=== PATIENT | male | born 1960 | race American Indian/Alaskan Native ===

== ENCOUNTER 2016-06-18 17:46 | Emergency (ER) | payer SELFPAY ==
--- NOTE | 2016-06-18 18:36 | Emergency Department Report ---
Chief Complaint: Abdominal Pain Stated Complaint: PELVIC / BACK PAIN Time Seen by Provider: 06/18/16 18:33 - HPI History of Present Illness: 55 y/o male complain of pelvic and back pain x 3 days .pt state he was moving heavy furniture and notice that when pain start 3 days ago. - ROS Review of Systems: per HPI - Exam Vital Signs: Vital Signs 06/18/16 18:02 Temperature 98.1 F Pulse Rate 105 H Respiratory 18 Rate Blood Pressure 130/89 O2 Sat by Pulse 99 Oximetry Physical Exam: GENERAL: The patient is well-developed and well-nourished. Patient is in NAD. HENT: Normocephalic. Atraumatic. Patient has moist mucous membranes. Throat: No erythema, swelling or exudates. Ears:Tympanic membranes pearly allred ,intact , and free of exudate and erythema . EYES: Extraocular motions are intact, PERRL NECK: Supple. No meningitic signs are noted. There is no adenopathy noted. CHEST/LUNGS: Clear to auscultation bilaterally. No wheezing, rales or rhonchi noted. There is no respiratory distress noted. HEART/CARDIOVASCULAR: Regular rate and rhythm. Normal S1 S2. No murmurs, rubs , clicks, or gallops. ABDOMEN: Abdomen is soft, nontender.. Bowel sounds normoactive. There is no abdominal distention. Negative rebound tenderness. : Deferred. SKIN: There is no rash. There is no edema. There is no diaphoresis.Normal skin turgor NEURO: The patient is A&Ox3. The patient has no focal neurologic deficits. MUSCULOSKELETAL: There is no tenderness or deformity. There is no limitation range of motion. posture erect.Spine aligned,no deformities. PSYCH: Pt has appropriate mood and affect. MSE screening note: Focused history and physical exam performed. Due to findings the following was ordered: ED Disposition for MSE Condition: Stable
[2016-06-18 19:13] LABS: Basophils % (Auto) 0.7 % (0.0-1.8); Eosinophils % (Auto) 0.9 % (0.0-4.3); Hemoglobin 13.9 gm/dl (11.8-15.2); Mean Corpuscular HGB Conc 33 % (32-34); Mean Corpuscular Hemoglobin 30 pg (28-32); Mean Corpuscular Volume 91 fl (84-94); Platelet Count 215 K/mm3 (140-440); Red Blood Count 4.63 M/mm3 (3.65-5.03); Red Cell Distribution Width 13.2 % (13.2-15.2); White Blood Count 6.6 K/mm3 (4.5-11.0)
[2016-06-18 19:23] LABS: INR 0.96 (0.87-1.13)
[2016-06-18 19:32] LABS: Amylase 94 units/L (27-131); Anion Gap 19 mmol/L; BUN/Creatinine Ratio 21.42; Blood Urea Nitrogen 15 mg/dL (9-20); Calcium 9.1 mg/dL (8.4-10.2); Carbon Dioxide 25 mmol/L (22-30); Chloride 91.6 mmol/L (98-107); Lipase 30 units/L (13-60); Potassium 4.3 mmol/L (3.6-5.0); Sodium 131 mmol/L (137-145)
[2016-06-18 19:42] LABS: Glucose 618 mg/dL (75-100)
[2016-06-18 20:46] LABS: Bilirubin,Urine NEG (Negative); Blood,Urine SM (Negative); Ketones,Urine 20 mg/dL (Negative); Leukocyte Esterase,Urine NEG (Negative); Mucus,Urine FEW /HPF; Nitrite,Urine NEG (Negative); Protein,Urine <15 mg/dL mg/dL (Negative); Urobilinogen,Urine < 2.0 mg/dL (<2.0)
[2016-06-18] MEDS ORDERED: NACL 0.9% 1000 ML 2,000 ML ONE (21:14)
[2016-06-18] MEDS ORDERED: NACL 0.9% 1000 ML 2,000 ML IV ONE (21:25)
--- NOTE | 2016-06-18 21:38 | Emergency Department Report ---
HPI - General Chief Complaint: Abdominal Pain Time Seen by Provider: 06/18/16 21:11 - HPI HPI: This is a 55-year-old Afro-[place]ian male presents to the emergency department with a three-day history of lower abdominal and/or pelvic pain, as well as some pain to the low back, that occurred after moving some heavy show cases a few days ago. He reports a history of a hernia in the right inguinal region and says he has pain in the same place. He denies any problems with bowel or bladder, numbness or paresthesias, or any neurological deficits. The patient has a history of non-insulin dependent diabetes and says he has been noncompliant with his medications for the past few months. He denies any illicit drug use or abuse. He has not taken anything for symptoms prior to presentation. No recent travel or sick contacts at home. He does not have a primary care doctor. ED Past Medical Hx - Past Medical History Hx Diabetes: Yes (NIDDM-NON COMPLIANT) - Surgical History Additional Surgical History: KNEE - Social History Smoking Status: Current Every Day Smoker Substance Use Type: None - Medications Home Medications: Home Medications Medication Instructions Recorded Confirmed Last Taken Type Docusate Sodium [Colace] 100 mg PO BID PRN #20 capsule 06/19/16 Unknown Rx Magnesium Citrate [Citrate of 300 ml PO NOW #1 bottle 06/19/16 Unknown Rx Magnesia] metFORMIN [Glucophage] 500 mg PO BID #60 tablet 06/19/16 Unknown Rx ED Review of Systems ROS: Stated complaint: PELVIC / BACK PAIN Other details as noted in HPI Comment: All other systems reviewed and negative Constitutional: denies: chills, fever Eyes: denies: eye pain, eye discharge, vision change ENT: denies: ear pain, throat pain Respiratory: denies: cough, shortness of breath, wheezing Cardiovascular: denies: chest pain, palpitations Gastrointestinal: abdominal pain. denies: nausea, vomiting Genitourinary: denies: dysuria, frequency Musculoskeletal: denies: back pain, joint swelling, arthralgia Skin: denies: rash, lesions Neurological: denies: headache, weakness, paresthesias Physical Exam - Physical Exam Vital Signs: Vital Signs 06/18/16 06/18/16 18:02 21:11 Temperature 98.1 F 98.1 F Pulse Rate 105 H 88 Respiratory 18 18 Rate Blood Pressure 130/89 Blood Pressure 134/89 [Right] O2 Sat by Pulse 99 98 Oximetry Physical Exam: GENERAL: The patient is well-developed well-nourished. HEENT: Normocephalic. Atraumatic. Extraocular motions are intact. Patient has moist mucous membranes. Pupils equal reactive to light bilaterally. NECK: Supple. Trachea is midline. CHEST/LUNGS: Clear to auscultation. There is no respiratory distress noted. HEART/CARDIOVASCULAR: Regular. There is no tachycardia. There is no gallop rub or murmur. ABDOMEN: Abdomen is soft. Mild tenderness to palpation to the lower quadrants of the abdomen. No guarding rebound tenderness. No peritoneal signs. Patient has normal bowel sounds. There is no abdominal distention.. : No rectal or testicular lesions seen. No tenderness to palpation of the scrotum. No inguinal hernia palpable. SKIN: There is no rash. There is no edema. There is no diaphoresis. NEURO: The patient is awake, alert, and oriented. The patient is cooperative. The patient has no focal neurologic deficits. The patient has normal speech. MUSCULOSKELETAL: There is no tenderness or deformity. There is no limitation range of motion. There is no evidence of acute injury. ED Course Vital Signs 06/18/16 06/18/16 18:02 21:11 Temperature 98.1 F 98.1 F Pulse Rate 105 H 88 Respiratory 18 18 Rate Blood Pressure 130/89 Blood Pressure 134/89 [Right] O2 Sat by Pulse 99 98 Oximetry ED Medical Decision Making - Lab Data Result diagrams: 06/18/16 18:55 06/18/16 18:55 - Radiology Data Radiology results: report reviewed, image reviewed interpreted by me: Abdominal x-ray shows a large amount of stool throughout the intestines but otherwise no obvious signs of obstruction. CT of the abdomen and pelvis with IV contrast shows left adrenal nodule that may represent adenomatous change but is indeterminate. Findings suggestive of constipation. Nonspecific prostatomegaly. - Medical Decision Making 55-year-old male presents the emergency department with the complaint of a few days of pain in the lower abdomen and pelvis, low back and concern that he has a hernia. Physical exam there is no visible or palpable hernia in the inguinal region or the abdomen. X-ray of the abdomen shows a large amount of stool but no obvious signs of obstruction. CT of the abdomen and pelvis with IV contrast shows a left adrenal nodule, constipation, and nonspecific prostatomegaly. Patient's labs are abnormal as he was found to have a blood sugar of around 600. A she has a history of ayd-gwuufqt-duzahokto diabetes but is not compliant with his meds past few months. He does not have any acidosis or significant ketosis. He was given 1 L of fluid and 1 dose of IV insulin and his blood sugars come down to about 270. Patient will be restarted on his metformin. He understands that he can purchase the medication for $4 at [facility] pharmacy. We discussed dietary changes and exercise. He has been given multiple referrals for primary care clinics. Patient is been reevaluated multiple times and is feeling much better. Vital signs stable throughout his ED course. He will return to the ER with any worsening of symptoms or any acute distress. - Differential Diagnosis DKA, HHNK, bowel obstruction, hernia Critical Care Time: No Critical care attestation.: If time is entered above; I have spent that time in minutes in the direct care of this critically ill patient, excluding procedure time. ED Disposition Clinical Impression: Noncompliance with medication regimen, Increased stool volume Uncontrolled diabetes mellitus Qualifiers: Diabetes mellitus type: type 2 Diabetes mellitus complication status: with hyperglycemia Diabetes mellitus jail insulin use: without jail use Qualified Code(s): E11.65 - Type 2 diabetes mellitus with hyperglycemia Abdominal pain Qualifiers: Abdominal location: lower abdomen, unspecified Qualified Code(s): R10.30 - Lower abdominal pain, unspecified Disposition: DISCHARGED TO HOME OR SELFCARE Is pt being admited?: No Does the pt Need Aspirin: No Condition: Stable Instructions: Diabetic Hyperglycemia (ED), Abdominal Pain (ED), Constipation ( ED) Additional Instructions: I've given you multiple referrals for local primary care clinics. These have established physicians at [facility] who can act as your primary care doctor. I have also prescribed you your metformin to restart to treat your diabetes. He metformin can be purchased for $4 for a one-month supply at any [email or web address]. Please also try and stay away from foods and drinks that are high in sugar, carbohydrates and starches. Return to the emergency department with any worsening of your symptoms or any acute distress. Prescriptions: Magnesium Citrate [Citrate of Magnesia] 300 ml PO NOW #1 bottle Docusate Sodium [Colace] 100 mg PO BID PRN #20 capsule PRN Reason: Constipation metFORMIN [Glucophage] 500 mg PO BID #60 tablet Referrals: PRIMARY CARE, [Primary Care Provider] - 3-5 Days [facility] [Outside] - 3-5 Days [facility] [Outside] - 3-5 Days [facility] [Outside] - 3-5 Days [facility] [Outside] - 3-5 Days [facility] [Outside] - 3-5 Days Time of Disposition: 01:06
[2016-06-18] MEDS ORDERED: NACL 0.9% 1000 ML 1,000 ML IV ONE (22:41)
--- NOTE | 2016-06-18 22:58 | XRay Report ---
FINAL REPORT EXAM: XR ABDOMEN 2V HISTORY: abd pain TECHNIQUE: Supine and upright views of abdomen. PRIORS: None. FINDINGS: Moderate-large amount of retained stool. Nonspecific bowel gas pattern without features suggestive of mechanical obstruction. No apparent pneumoperitoneum. No abnormal calcifications. Osseous structures grossly unremarkable. IMPRESSION: 1. Nonspecific bowel gas pattern, which may be secondary to constipation or represent adynamic ileus. Followup may be warranted.
[2016-06-18] MEDS ORDERED: MORPHINE IV ONE (23:11)
[2016-06-18] MEDS ORDERED: NACL ONE (23:46)
--- NOTE | 2016-06-19 00:06 | Admit Criteria Form ---
[id number] ABDOMINAL PAIN Clinical Indications for Admission to Inpatient Care (Place 'X' for any and all applicable criteria): Admission is indicated for ANY ONE of the following(1)(2)(3)(4)(5): [ X]I. Inpatient admission required rather than observation care (Also use Abdominal Pain: Observation Care, as appropriate) because of ANY ONE of the following: [ ]a) Severe pain requiring acute inpatient management [ ]b) Identification of etiology/finding that requires inpatient care (eg, aortic dissection, free air) [ ]c) Absent bowel sounds with complete ileus(6) [ ]d) Suspected toxic megacolon [ ]e) Severe electrolyte abnormalities requiring inpatient care [ ]f) High fever or infection requiring inpatient admission as indicated by ANY ONE of following(7)(8): [ ] i) Appropriate outpatient or observational care antimicrobial treatment unavailable, not effective, or not feasible [ ] ii) Documented bacteremia [ ] iii) Temperature > 104.9 degrees F (oral) [ ] iv) T >103.1 F (oral) or < 96.8 F(rectal) that does not respond to all emergency treatment measures [ ]g) Signs of intestinal obstruction [B] [ ]h) Hemodynamic instability [ ]i) IV fluid to replace significant ongoing losses (greater than 3 L/m2 per day) (12)(13) [ ]j) Percutaneous or open drainage (eg, abscess, biliary tract ) procedures [ ]k) Parenteral nutrition regimen that must be implemented on inpatient basis [ X]l) Other condition,treatment or monitoring requiring inpatient admission. [ ]II. Peritoneal signs present [ ]III. Surgery needed that cannot be performed on an ambulatory basis. [ ]IV. Evaluation requires patient to not eat or drink for extended period ( eg, more than 24 hours). [ ]V. Contraindications and/or Inappropriate clinical situations for Observational Care in patients with abdominal pain, when ANY ONE of the following is required: [ ]a) Thorough evaluation is required to prevent catastrophic events due to delays in diagnosing (e.g.Mesenteric ischemia) 1,3 [ ]b) Patient with severe pathology or with chronic symptoms unlikely to improve in the ED stay (3) [ ]. General contraindications and/or Inappropriate clinical situations for Observational Care in patients with abdominal pain, when ANY ONE of the following is required: [ ]a) Prediction of prolongation of LOS based on ANY ONE of the following may be considered as a contraindication for observational care 2, 3, 4, 5, 6, 7, 8, 9, 10, 11 [ ]i) Age > 65 yrs. [ ]ii) Patient arriving by ambulance [ ]iii) Patient with high acuity [ ]iv) Patient requiring vital sign monitoring [ ]v) Patient on IV medication [ ]b) Systolic blood pressures 180mmHg 3,12 [ ]c) Patient with altered mental status including delirium and other alteration of consciousness, (3) [ ]d) Patient whose discharge disposition will be to a long term home or rehabilitation home should not be managed in Emergency Department Observation Unit. CMS rule requires 3 days hospital stay before such placement.3,13 [ ]e) Patient with failure to thrive due to broad array of etiologies 3,16,17 [ ]f) Inability to ambulate 3,14 Extended stay beyond goal length of stay may be needed for(2)(3): [ ]a) Persistent abdominal pain with suspected intra-abdominal process [ ]b) Diagnosed condition requiring continued stay (e.g., pancreatitis, complicated diverticulitis) [ ]c) Surgery (e.g., colectomy) The original [employer] content created by [employer] has been revised. The portions of the content which have been revised are identified through the use of italic text or in bold, and [facility] has neither reviewed nor approved the modified material.All other unmodified content is copyright [employer]. Please see references footnoted in the original [facility] edition 2016 Admission Criteria Met: Yes <BRI ANDRE - Last Filed: 06/19/16 20:06> Admission Criteria Met: No (Patient improved and discharged)
--- NOTE | 2016-06-19 00:42 | Cat Scan Report ---
FINAL REPORT EXAM: CT ABDOMEN PELVIS W CON HISTORY: Abd pain TECHNIQUE: Spiral CT scanning of the abdomen and pelvis after the uneventful administration of IV contrast. Multiplanar reformations. 100 mL Omnipaque IV. PRIORS: None. FINDINGS: Abdomen: Visualized lung bases grossly unremarkable. No radiopaque gallstones. Liver without significant abnormality. Spleen without significant abnormality. Pancreas without significant abnormality. Kidneys without significant abnormality. Nodular density in the left adrenal gland measures approximately 1.5 cm. Right adrenal gland grossly unremarkable. Pelvis: Bowel grossly unremarkable, with moderate-large amount of retained stool. Probable appendix partially visualized and grossly unremarkable. No significant free peritoneal fluid or apparent adenopathy. Abdominal aorta non-aneurysmal. Urinary bladder distended, nonspecific. Nonspecific prostatic enlargement. IMPRESSION: 1. Left adrenal nodule may represent adenomatous change, but is indeterminate. Followup suggested. 2. Findings suggestive of constipation. 3. Nonspecific prostatomegaly.
[2016-06-19 01:29] VITALS: BP 125/78
== END 2016-06-19 01:00 | disposition home or self-care (01) ==
LOC: ED 17:46
DX: E11.65 Type 2 diabetes mellitus with hyperglycemia (principal); R10.30 Lower abdominal pain, unspecified; R19.5 Other fecal abnormalities; Z91.14 Patient's other noncompliance with medication regimen; F17.200 Nicotine dependence, unspecified, uncomplicated
CPT/HCPCS: 36415; 74020; 74177; 80048; 81001; 82010; 82150; 82805; 82962; 83690; 83930; 85025; 85610; 96361; 96374; 96375; 99284; J2270; Q9967; J1815; J7030

== ENCOUNTER 2016-07-18 20:07 | Emergency (ER) | payer SELFPAY ==
--- NOTE | 2016-07-18 22:00 | Emergency Department Report ---
Chief Complaint: Abdominal Pain Stated Complaint: PELVIC PAIN Time Seen by Provider: 07/18/16 21:53 - HPI History of Present Illness: Patient admits to right groin pain that radiates down right leg. He has been dx with hernia years ago, but has not bothered him until 1 month ago. Pain is increasing, admits to right testicular pain, denies swelling, denies fever, n/v , admits to chills. Denies std. - ROS Review of Systems: All other systems unremarkable except documentation in HPI - Exam Vital Signs: Vital Signs 07/18/16 20:52 Temperature 99.6 F Pulse Rate 104 H Respiratory 18 Rate Blood Pressure 104/74 O2 Sat by Pulse 99 Oximetry Physical Exam: Gen: Male no apparent distress noted, ambulatory. Cardiovascular: Heart sounds present S1-S2, no murmur, gallop, edema or ectopy noted, 2+ pulses upper and lower extremities Respiratory: Chest symmetry with respirations, lungs clear to auscultate upper and lower lobes, respirations even and unlabored, no rales, rhonchi, crackles noted. : Right groin with approximately 4 cm hernia. No apparent swelling to bilateral testicles, no tenderness to palpation of testicles. Psych: AxOx3, answers questions appropriately, mood full range, affect normal, normal speech and tone. MSE screening note: Focused history and physical exam performed. Due to findings the following was ordered: seen by provider, laboratory studies ordered, and to go to main ED to be seen by physician ED Medical Decision Making - Medical Decision Making seen by provider, laboratory studies ordered, and to go to main ED to be seen by physician ED Disposition for MSE Condition: Stable Referrals: PRIMARY CARE [Primary Care Provider] - 3-5 Days
[2016-07-18 23:09] LABS: Anion Gap 21 mmol/L; Blood Urea Nitrogen 18 mg/dL (9-20); Calcium 9.4 mg/dL (8.4-10.2); Carbon Dioxide 26 mmol/L (22-30); Chloride 88.6 mmol/L (98-107); Potassium 5.5 mmol/L (3.6-5.0); Sodium 130 mmol/L (137-145)
[2016-07-18 23:11] LABS: Glucose 631 mg/dL (75-100)
[2016-07-18 23:13] LABS: Basophils % (Auto) 0.5 % (0.0-1.8); Hematocrit 41.8 % (35.5-45.6); Hemoglobin 13.5 gm/dl (11.8-15.2); Mean Corpuscular HGB Conc 32 % (32-34); Mean Corpuscular Hemoglobin 30 pg (28-32); Mean Corpuscular Volume 93 fl (84-94); Platelet Count 185 K/mm3 (140-440); Red Blood Count 4.49 M/mm3 (3.65-5.03); Red Cell Distribution Width 12.8 % (13.2-15.2); White Blood Count 6.9 K/mm3 (4.5-11.0)
[2016-07-18] MEDS ORDERED: TYLENOL ONE (23:23)
[2016-07-18] MEDS ORDERED: TYLENOL PO ONE (23:25)
[2016-07-19 00:32] LABS: Bacteria,Urine 1+ /HPF (Negative); Bilirubin,Urine NEG (Negative); Blood,Urine NEG (Negative); Ketones,Urine TR mg/dL (Negative); Leukocyte Esterase,Urine NEG (Negative); Nitrite,Urine POS (Negative); Protein,Urine <15 mg/dL mg/dL (Negative); Urobilinogen,Urine < 2.0 mg/dL (<2.0)
[2016-07-19] MEDS ORDERED: NACL 0.9% 1000 ML IV ONE (07:01)
[2016-07-19] MEDS ORDERED: TYLENOL ONE (07:11)
--- NOTE | 2016-07-19 07:22 | Emergency Department Report ---
HPI - General Chief Complaint: Abdominal Pain Time Seen by Provider: 07/18/16 21:53 - HPI HPI: Chief complaint: Right inguinal pain HPI: Patient is a kui-[id number]-heqexxuhv diabetic who states that he has had a right inguinal hernia for many years. Patient states over the last month it has been getting worse whenever he stands up it extrudes. Patient states when he lays down it goes back in. Patient also states that for several months he's been having increased thirst, urination and has been losing weight. Patient takes 500 of metformin twice a day and does not check his sugars. Patient does not have a primary care doctor. Mode of arrival: [private car] Source: [Patient] [old chart] Began: See above Duration: See above Context: See above Quality: Dull Severity: 10 out of 10 Improved with: Laying down Worsened with: Standing up Associated signs and symptoms: Nausea vomiting or diarrhea. No fever cough or cold. ED Past Medical Hx - Past Medical History Previous Medical History?: Yes Hx Diabetes: Yes (NIDDM-NON COMPLIANT) Additional medical history: hernia - Surgical History Past Surgical History?: Yes Additional Surgical History: KNEE right - Social History Smoking Status: Never Smoker Substance Use Type: None - Medications Home Medications: Home Medications Medication Instructions Recorded Confirmed Last Taken Type metFORMIN [Glucophage] 500 mg PO BID #60 tablet 06/19/16 07/19/16 Unknown Rx metFORMIN [Glucophage] 850 mg PO BID #60 tablet 07/19/16 Unknown Rx traMADol [Ultram 50 MG tab] 50 mg PO Q6HR PRN #20 tablet 07/19/16 Unknown Rx ED Review of Systems ROS: Stated complaint: PELVIC PAIN Other details as noted in HPI ROS Constitutional: No fever ENT: No uri symptoms Cardiovascular: No chest pain Respiratory: No sob or cough GI: No nausea vomiting or diarrhea : No dysuria frequency or urgency, Skin: No rash Neuro: No focal weakness or numbness Psych: No depression Yuri/lymph: No edema Physical Exam - Physical Exam Vital Signs: Vital Signs 07/18/16 07/18/16 07/19/16 20:52 23:27 01:07 Temperature 99.6 F Pulse Rate 104 H Respiratory 18 18 Rate Blood Pressure 104/74 120/77 Blood Pressure [Right] O2 Sat by Pulse 99 Oximetry 07/19/16 07/19/16 07/19/16 01:11 01:18 01:21 Temperature 98.1 F Pulse Rate Respiratory 20 Rate Blood Pressure 120/77 116/73 Blood Pressure 120/77 [Right] O2 Sat by Pulse 100 100 100 Oximetry 07/19/16 07/19/16 07/19/16 01:31 01:41 01:51 Temperature Pulse Rate Respiratory Rate Blood Pressure 116/73 116/73 116/73 Blood Pressure [Right] O2 Sat by Pulse 98 99 98 Oximetry 07/19/16 07/19/16 07/19/16 02:00 02:11 02:21 Temperature Pulse Rate Respiratory Rate Blood Pressure 109/65 109/65 109/65 Blood Pressure [Right] O2 Sat by Pulse 97 98 Oximetry 07/19/16 07/19/16 07/19/16 02:31 02:41 02:51 Temperature Pulse Rate Respiratory Rate Blood Pressure 109/65 109/65 109/65 Blood Pressure [Right] O2 Sat by Pulse 99 99 98 Oximetry 07/19/16 07/19/16 07/19/16 04:43 04:51 05:00 Temperature Pulse Rate Respiratory Rate Blood Pressure 123/80 127/78 Blood Pressure [Right] O2 Sat by Pulse 98 98 100 Oximetry 07/19/16 07/19/16 07/19/16 05:11 05:21 05:31 Temperature Pulse Rate Respiratory Rate Blood Pressure 127/78 127/78 127/78 Blood Pressure [Right] O2 Sat by Pulse 100 99 98 Oximetry 07/19/16 07/19/16 05:41 05:51 Temperature Pulse Rate Respiratory Rate Blood Pressure 127/78 127/78 Blood Pressure [Right] O2 Sat by Pulse 98 99 Oximetry Physical Exam: GENERAL: The patient is well-developed well-nourished . HEENT: Normocephalic. Atraumatic. Extraocular motions are intact. Patient has moist mucous membranes. NECK: Supple. No meningitic signs are noted. There is no adenopathy noted. CHEST/LUNGS: Clear to auscultation. There is no respiratory distress noted. HEART/CARDIOVASCULAR: Regular. There is no tachycardia. There is no gallop rub or murmur. ABDOMEN: Abdomen is soft, nontender. Patient has normal bowel sounds. There is no abdominal distention. Right inguinal hernia easily reduced. SKIN: There is no rash. There is no edema. There is no diaphoresis. NEURO: The patient is awake, alert, and oriented. The patient is cooperative. The patient has no focal neurologic deficits. The patient has normal speech. MUSCULOSKELETAL: There is no tenderness or deformity. There is no limitation range of motion. There is no evidence of acute injury. ED Course Vital Signs 07/18/16 07/18/16 07/19/16 20:52 23:27 01:07 Temperature 99.6 F Pulse Rate 104 H Respiratory 18 18 Rate Blood Pressure 104/74 120/77 Blood Pressure [Right] O2 Sat by Pulse 99 Oximetry 07/19/16 07/19/16 07/19/16 01:11 01:18 01:21 Temperature 98.1 F Pulse Rate Respiratory 20 Rate Blood Pressure 120/77 116/73 Blood Pressure 120/77 [Right] O2 Sat by Pulse 100 100 100 Oximetry 07/19/16 07/19/16 07/19/16 01:31 01:41 01:51 Temperature Pulse Rate Respiratory Rate Blood Pressure 116/73 116/73 116/73 Blood Pressure [Right] O2 Sat by Pulse 98 99 98 Oximetry 07/19/16 07/19/16 07/19/16 02:00 02:11 02:21 Temperature Pulse Rate Respiratory Rate Blood Pressure 109/65 109/65 109/65 Blood Pressure [Right] O2 Sat by Pulse 97 98 Oximetry 07/19/16 07/19/16 07/19/16 02:31 02:41 02:51 Temperature Pulse Rate Respiratory Rate Blood Pressure 109/65 109/65 109/65 Blood Pressure [Right] O2 Sat by Pulse 99 99 98 Oximetry 07/19/16 07/19/16 07/19/16 04:43 04:51 05:00 Temperature Pulse Rate Respiratory Rate Blood Pressure 123/80 127/78 Blood Pressure [Right] O2 Sat by Pulse 98 98 100 Oximetry 07/19/16 07/19/16 07/19/16 05:11 05:21 05:31 Temperature Pulse Rate Respiratory Rate Blood Pressure 127/78 127/78 127/78 Blood Pressure [Right] O2 Sat by Pulse 100 99 98 Oximetry 07/19/16 07/19/16 05:41 05:51 Temperature Pulse Rate Respiratory Rate Blood Pressure 127/78 127/78 Blood Pressure [Right] O2 Sat by Pulse 98 99 Oximetry - Reevaluation(s) Reevaluation #1: 07/19/16 07:14 Patient will be given 2 L normal saline and 5 units of regular insulin and we will recheck his Accu-Chek. ED Medical Decision Making - Lab Data Result diagrams: 07/18/16 22:20 07/18/16 22:20 Laboratory Tests 07/18/16 07/19/16 07/19/16 Unknown 02:05 08:08 VBG pH 7.351 POC Glucose 266 H Urine pH 6.0 Ur Specific [place] 1.033 H Urine Protein <15 mg/dl Urine Glucose (UA) >=500 Urine Ketones Tr Urine Nitrite Pos Ur Leukocyte Esterase Neg Urine WBC (Auto) 2.0 Urine RBC (Auto) 6.0 - Radiology Data Radiology results: report reviewed (CT scan shows no acute abdominal pathology) Critical care attestation.: If time is entered above; I have spent that time in minutes in the direct care of this critically ill patient, excluding procedure time. ED Disposition Clinical Impression: Right inguinal hernia Uncontrolled diabetes mellitus Qualifiers: Diabetes mellitus type: type 2 Diabetes mellitus complication status: without complication Disposition: DISCHARGED TO HOME OR SELFCARE Is pt being admited?: No Does the pt Need Aspirin: No Condition: Stable Instructions: Diabetes Mellitus Type 2 in Adults (ED), Inguinal Hernia (ED) Prescriptions: metFORMIN [Glucophage] 850 mg PO BID #60 tablet traMADol [Ultram 50 MG tab] 50 mg PO Q6HR PRN #20 tablet PRN Reason: Pain Referrals: [facility] [Provider Group] - 3-5 Days ([facility] is a clinic that we will see you on a sliding scale basis. You need to follow-up to have your blood sugar rechecked to see if you need a dose adjustment to your metformin.) ALAYNA LLOYD MD [Staff Physician] - 3-5 Days (Dr. Lloyd is a general surgeon for you to follow-up with for your inguinal hernia.) Time of Disposition: 08:46
[2016-07-19] MEDS ORDERED: TYLENOL PO ONE (07:26)
--- NOTE | 2016-07-19 07:41 | Cat Scan Report ---
FINAL REPORT PROCEDURE: CT ABDOMEN PELVIS W CON TECHNIQUE: Computerized axial tomography of the abdomen and pelvis was performed after the IV injection of iodinated nonionic contrast. Oral contrast was not given HISTORY: Abdominal pain, history of hernia COMPARISON: Prior abdomen and pelvic CT scan of June 19, 2016 FINDINGS: Visualized lower thorax: There is mild atelectasis in the posterior lung bases.. Liver: There is a small hypodense focus in the anterior liver near the falciform ligament. This is too small to characterize therefore remains nonspecific. However given its typical location this could be a small area of focal fatty infiltration. Liver appears unremarkable otherwise.. Spleen: Slightly heterogenous appearance on initial phase only could be due to contrast flux.. Gallbladder and biliary system: Normal. Pancreas: Normal. Adrenals: Again seen is a nodule in left adrenal gland similar prior exam. This measures about 1.5 centimeters. This has nonspecific density measurements.. Kidneys: Normal. GI tract: The bowel appears unremarkable when considering lack of oral contrast. Moderate amount of stool throughout the colon. The appendix cannot be identified with certainty. This in part is because the patient is thin with a paucity of abdominal. Lymph nodes and mesentery: There is no CT evidence of enlarged lymph node or distinct mesenteric abnormality. However there is a paucity of abdominal and fat. This lowers CT sensitivity in detecting subtle or mild abnormalities involving the mesentery and bowel Vasculature: Normal. Bladder: Moderate distention.. Reproductive organs: Normal. Peritoneum: No free fluid. Musculoskeletal structures: No significant abnormality. Other: None. IMPRESSION: 1. There is no CT evidence of distinct acute finding in the abdomen or pelvis. 2. There is a 1.5 centimeter nodule in left adrenal gland appearing similar to recent prior study of June 19, 2016. This has nonspecific density measurements and therefore remains nonspecific. However statistically this is most likely an incidental adenoma. 3. Moderate distention of urinary bladder. 4. There is a paucity of abdominal fat in this relatively thin patient. This limits CT sensitivity in detecting mild or subtle abnormalities in the mesentery and bowel. 5. Moderate amount of stool throughout the colon. 6. If there is continued concern for abdomen or pelvic abnormality or unexplained symptoms and further evaluation is still desired, follow-up CT scan using both oral and IV contrast recommended only if clinically indicated.
[2016-07-19 09:08] VITALS: BP 117/62
== END 2016-07-19 09:19 | disposition home or self-care (01) ==
LOC: ED 20:07
DX: R10.31 Right lower quadrant pain (principal); E11.9 Type 2 diabetes mellitus without complications
CPT/HCPCS: 36415; 74177; 80048; 81001; 82805; 82962; 85025; 96361; 96374; 99284; J7030; Q9967; J1815

== ENCOUNTER 2016-10-23 00:59 | Emergency (ER) | payer SELFPAY ==
[2016-10-23] MEDS ORDERED: TYLENOL PO ONE (03:15)
[2016-10-23] MEDS ORDERED: TYLENOL ONE (03:16)
[2016-10-23 03:30] LABS: Basophils % (Auto) 0.6 % (0.0-1.8); Eosinophils % (Auto) 1.3 % (0.0-4.3); Hemoglobin 12.1 gm/dl (11.8-15.2); Mean Corpuscular HGB Conc 34 % (32-34); Mean Corpuscular Hemoglobin 30 pg (28-32); Mean Corpuscular Volume 91 fl (84-94); Platelet Count 219 K/mm3 (140-440); Red Blood Count 3.96 M/mm3 (3.65-5.03); Red Cell Distribution Width 13.4 % (13.2-15.2); White Blood Count 6.9 K/mm3 (4.5-11.0)
[2016-10-23 03:52] LABS: Alanine Aminotransferase 9 units/L (7-56); Albumin 4.1 g/dL (3.9-5); Albumin/Globulin Ratio 1.5 %; Alkaline Phosphatase 56 units/L (35-129); Anion Gap 18 mmol/L; Blood Urea Nitrogen 15 mg/dL (9-20); Calcium 9.1 mg/dL (8.4-10.2); Carbon Dioxide 23 mmol/L (22-30); Chloride 99.7 mmol/L (98-107); Glucose 210 mg/dL (75-100); Lipase 32 units/L (13-60); Potassium 4.1 mmol/L (3.6-5.0); Sodium 137 mmol/L (137-145); Total Protein 6.8 g/dL (6.3-8.2)
[2016-10-23 09:31] LABS: Bacteria,Urine 1+ /HPF (Negative); Bilirubin,Urine NEG (Negative); Blood,Urine NEG (Negative); Ketones,Urine NEG (Negative); Leukocyte Esterase,Urine LG (Negative); Mucus,Urine 3+ /HPF; Nitrite,Urine NEG (Negative); Protein,Urine <15 mg/dL mg/dL (Negative)
[2016-10-23] MEDS ORDERED: NACL 0.9% 1000 ML 1,000 ML IV ONE (13:32)
[2016-10-23] MEDS ORDERED: ZOFRAN IV ONE (13:32)
[2016-10-23] MEDS ORDERED: MORPHINE IV ONE (13:32)
[2016-10-23] MEDS ORDERED: ROCEPHIN/NS 1 GM/50 ML 1 GM/50 ML BAG IV ONE ×2 (13:34→15:29)
--- NOTE | 2016-10-23 13:38 | Emergency Department Report ---
ED Abdominal Pain HPI - General Chief Complaint: Abdominal Pain Stated Complaint: ABD PAIN Time Seen by Provider: 10/23/16 12:46 Source: patient, EMS Mode of arrival: Stretcher Limitations: No Limitations - History of Present Illness Initial Comments: Patient relates that he's been having intermittent excruciating lower abdominal pain that he attributes to recent hernia mesh surgery done in July of this year. Patient complains of anorexia, nausea vomiting denies diarrhea. Patient denies fever but complains of chills. Patient does not know what hospital he had his surgery at or the name of the surgeon. -: Gradual Location: suprapubic Severity scale (0 -10): 10 - Related Data Previous Rx's Medication Instructions Recorded Last Taken Type metFORMIN [Glucophage] 500 mg PO BID #60 tablet 06/19/16 Unknown Rx metFORMIN [Glucophage] 850 mg PO BID #60 tablet 07/19/16 Unknown Rx traMADol [Ultram 50 MG tab] 50 mg PO Q6HR PRN #20 tablet 07/19/16 Unknown Rx Levofloxacin [Levaquin TAB] 500 mg PO QDAY #10 tablet 10/23/16 Unknown Rx Phenazopyridine [Pyridium] 200 mg PO BID #12 tab 10/23/16 Unknown Rx Allergies Allergy/AdvReac Type Severity Reaction Status Date / Time No Known Allergies Allergy Verified 07/18/16 20:57 ED Review of Systems ROS: Stated complaint: ABD PAIN Other details as noted in HPI ED Past Medical Hx - Past Medical History Previous Medical History?: Yes Hx Hypertension: Yes Hx Diabetes: Yes (NIDDM-NON COMPLIANT) Additional medical history: hernia - Surgical History Past Surgical History?: Yes Additional Surgical History: KNEE right - Social History Smoking Status: Current Every Day Smoker Substance Use Type: None - Medications Home Medications: Home Medications Medication Instructions Recorded Confirmed Last Taken Type metFORMIN [Glucophage] 500 mg PO BID #60 tablet 06/19/16 07/19/16 Unknown Rx metFORMIN [Glucophage] 850 mg PO BID #60 tablet 07/19/16 Unknown Rx traMADol [Ultram 50 MG tab] 50 mg PO Q6HR PRN #20 tablet 07/19/16 Unknown Rx Levofloxacin [Levaquin TAB] 500 mg PO QDAY #10 tablet 10/23/16 Unknown Rx Phenazopyridine [Pyridium] 200 mg PO BID #12 tab 10/23/16 Unknown Rx ED Physical Exam - General Limitations: No Limitations General appearance: alert, in no apparent distress, other - Head Head exam: Present: atraumatic, normocephalic - Eye Eye exam: Present: normal appearance, PERRL, EOMI - ENT ENT exam: Present: mucous membranes moist - Neck Neck exam: Present: normal inspection, full ROM. Absent: tenderness, meningismus, lymphadenopathy - Respiratory Respiratory exam: Present: normal lung sounds bilaterally. Absent: respiratory distress, wheezes, rales, rhonchi, stridor, chest wall tenderness, accessory muscle use, decreased breath sounds, prolonged expiratory - Cardiovascular Cardiovascular Exam: Present: regular rate. Absent: systolic murmur, diastolic murmur, rubs, gallop - GI/Abdominal GI/Abdominal exam: Present: soft, tenderness, normal bowel sounds, other ( patient writhing about in pain with the slightest touch unable to form accurate abdominal exam.) - Rectal Rectal exam: Present: deferred - exam: Present: normal inspection - Extremities Exam Extremities exam: Present: normal inspection - Back Exam Back exam: Present: normal inspection - Neurological Exam Neurological exam: Present: alert, oriented X3 - Psychiatric Psychiatric exam: Present: normal affect, normal mood - Skin Skin exam: Present: warm, dry, intact, normal color, other (H and is afebrile with nontoxic appearance and well-hydrated.). Absent: rash ED Course Vital Signs 10/23/16 10/23/16 10/23/16 03:06 03:18 06:01 Temperature 98.8 F 98.9 F Pulse Rate 95 H 88 Respiratory 22 20 88 H Rate Blood Pressure 147/95 139/85 O2 Sat by Pulse 100 100 Oximetry 10/23/16 10/23/16 10/23/16 12:04 12:13 13:00 Temperature 98.1 F Pulse Rate Respiratory Rate Blood Pressure 142/83 162/102 O2 Sat by Pulse 100 100 Oximetry - Reevaluation(s) Reevaluation #1: 10/23/16 15:38 Patient is normotensive normocardic, afebrile and resting comfortably in room. I discussed labs and CT results with patient and pointed out to him the only positive finding we have is his contaminated UA which we are treating him for with IV Rocephin and by mouth Levaquin outpatient. I stressed the patient multiple times if he feels he is having problem with his surgery he really needs to follow-up with his surgeon and go to the facility where the surgery was at. Patient verbalized understanding of this. ED Medical Decision Making - Lab Data Result diagrams: 10/23/16 03:19 10/23/16 03:19 Critical care attestation.: If time is entered above; I have spent that time in minutes in the direct care of this critically ill patient, excluding procedure time. ED Disposition Clinical Impression: UTI (urinary tract infection) Disposition: DISCHARGED TO HOME OR SELFCARE Is pt being admited?: No Condition: Stable Instructions: Urinary Tract Infection in Men (ED) Prescriptions: Levofloxacin [Levaquin TAB] 500 mg PO QDAY #10 tablet Phenazopyridine [Pyridium] 200 mg PO BID #12 tab Referrals: PRIMARY CARE, [Primary Care Provider] - 3-5 Days Forms: Work/School Release Form(ED)
--- NOTE | 2016-10-23 14:31 | Cat Scan Report ---
CT SCAN OF THE ABDOMEN AND PELVIS WITH CONTRAST: HISTORY: Lower abdominal pain. TECHNIQUE: Helical CT in 1.25mm intervals following IV contrast. Sagittal and coronal reconstructions. FINDINGS: Compared to 07/19/16. The liver is normal in size and is without focal defect. No gallstones or biliary dilatation are noted. The spleen and pancreas demonstrate a normal size and attenuation with no evidence of abnormal mass. The kidneys are normal in size and position with no evidence of hydronephrosis or mass. The 1.5 cm left adrenal nodule is unchanged and probably represents an adrenal adenoma. The right adrenal gland remains normal. There is no intestinal obstruction or ascites. The appendix is not confidently identified. Moderate to large stool throughout the length of the colon. The abdominal aorta is normal. No abnormalities are identified within the retroperitoneum or mesentery. There is no evidence of peritoneal air or fluid. There is no evidence of any abnormal masses or fluid collections within the pelvis. No adenopathy is identified. The bladder is mildly distended but unremarkable otherwise. IMPRESSION: No acute inflammatory process is appreciated. Moderate constipation. 1.5 cm left adrenal nodule, unchanged. No overwhelming change since 07/19/16.
[2016-10-23 15:45] VITALS: BP 179/98
== END 2016-10-23 15:45 | disposition home or self-care (01) ==
LOC: ED 00:59
DX: N39.0 Urinary tract infection, site not specified (principal); I10 Essential (primary) hypertension; E11.9 Type 2 diabetes mellitus without complications; F17.200 Nicotine dependence, unspecified, uncomplicated
CPT/HCPCS: 36415; 74177; 80053; 81001; 83690; 85025; 96365; 96375; 99284; J0696; J2270; J2405; J7030; Q9967